=== PATIENT | female | born 1970 | race Caucasian/White ===

== ENCOUNTER → 2016-05-07 | Outpatient (CLI) | payer BC, OTHER ==
[2016-05-07 16:57] LABS: BASO % 0.2 % (0.0-1.0); EOS % 0.6 % (0.0-3.0); LARGE UNSTAINED CELL # 0.1 K/mm3 (0.0-0.4); LARGE UNSTAINED CELL % 1.5 % (0.0-4.0); LYMPH # 1.2 K/mm3 (1.5-4.5); LYMPH % 17.6 % (24.0-44.0); MEAN CORPUSCULAR HEMOGLOBIN 23.3 pg (27.0-33.0); MEAN CORPUSCULAR VOLUME 77.9 fl (80.0-96.0); MONO # 0.2 K/mm3 (0.0-0.8); MONO % 3.5 % (0.0-5.0); NEUTROPHILS # 5.2 K/mm3 (1.8-7.7); NEUTROPHILS % 76.5 % (36.0-66.0); PLATELET COUNT, AUTOMATED 220 k/mm3 (150-450); WHITE BLOOD COUNT 6.8 K/mm3 (4.0-10.0)
[2016-05-07 16:59] LABS: ADD MORPHOLOGY? YES
[2016-05-07 17:18] LABS: ALBUMIN 3.6 GM/DL (3.2-5.2); ALBUMIN/GLOBULIN RATIO 1.33 (1.00-1.93); ALKALINE PHOSPHATASE 49 U/L (45-117); ALT/SGPT 21 U/L (12-78); ANION GAP 5 MEQ/L (8-16); AST/SGOT 15 U/L (15-37); BILIRUBIN,TOTAL 0.4 MG/DL (0.2-1.0); BLOOD UREA NITROGEN 11 MG/DL (7-18); CALCIUM LEVEL 8.5 MG/DL (8.5-10.1); CARBON DIOXIDE LEVEL 27 MEQ/L (21-32); CHLORIDE LEVEL 110 MEQ/L (98-107); CREATININE FOR GFR 0.77 MG/DL (0.55-1.02); FREE T4 1.33 NG/DL (0.76-1.46); GLOMERULAR FILTRATION RATE > 60.0 (>58); GLUCOSE, FASTING 91 MG/DL (70-105); POTASSIUM SERUM 4.1 MEQ/L (3.5-5.1); SODIUM LEVEL 142 MEQ/L (136-145); TOTAL PROTEIN 6.3 GM/DL (6.4-8.2)
[2016-05-07 21:38] LABS: ANISOCYTOSIS 1+; HYPOCHROMASIA 2+; MICROCYTOSIS 1+
== END | disposition home or self-care (01) ==
LOC: M WUC 14:06
PROVIDERS: ATTEND Nurse Practitioner Family
DX: K21.9 Gastro-esophageal reflux disease without esophagitis (principal); E61.1 Iron deficiency; E03.9 Hypothyroidism, unspecified

== ENCOUNTER 2016-06-05 14:02 | Emergency (ER) | END 2016-06-05 16:12 | disposition left against medical advice (07) | LOC: M ED 14:02 | DX: Z53.29 Procedure and treatment not carried out because of patient's decision for other reasons (principal) ==